=== PATIENT | female | born 1935 | race Caucasian/White ===

== ENCOUNTER 2021-12-25 23:44 | Emergency (ER) | payer MEDICARE, SELFPAY ==
[2021-12-26] VITALS (28 sets, daily range): BP systolic 157–243; BP diastolic 65–105; PULSE 78–107; RESP 16; TEMP 36.4; O2SAT 92–100
--- NOTE | 2021-12-26 00:08 | ED.EPISTAXIS ---
HPI - Epistaxis General Chief complaint: Epistaxis Stated complaint: nose bleed intermittent X 2 days Time Seen by Provider: 12/25/21 23:53 Source: patient Mode of arrival: ambulatory Limitations: no limitations History of Present Illness HPI Narrative: Patient is an 86-year-old female complaining of nosebleed, right right side that started today. Patient states that she has had nosebleeds in the past but would stop spontaneously. Patient denies being on any oral anticoagulant. Patient takes 1 baby aspirin a day. Patient denies any injury. Patient has no other complaints. Patient states that her blood pressure is usually high every time she sees her doctor or hospitals, makes her anxious. Related Data Home Medications Medication Instructions Recorded Confirmed aspirin 81 mg tablet,delayed 81 mg PO DAILY 02/19/20 07/21/21 release hydralazine 50 mg PO TID 12/26/21 Allergies Allergy/AdvReac Type Severity Reaction Status Date / Time clonidine AdvReac Unknown CONSTIPATIO Verified 12/26/21 00:06 N Review of Systems Review of Systems: Per HPI All systems reviewed & are unremarkable except as noted in HPI and below Constitutional: Constitutional: Denies body ache(s), Denies chills, Denies excessive sweating, Denies fatigue, Denies fever(s), Denies headache(s), Denies lethargy, Denies malaise, Denies weakness and Denies weight loss Eyes: Eyes: Denies blurry vision, Denies change in vision and Denies loss of vision ENT: Denies dizziness, Denies ear discharge, Denies headache(s), Denies lip swelling, Denies nasal congestion, Denies neck pain, Denies throat swelling and Denies tongue swelling Cardiovascular: Cardiovascular: Denies chest pain, Denies chest pain at rest, Denies chest pain with activity, Denies diaphoresis, Denies rapid heart rate, Denies edema, Denies irregular heart rhythm, Denies lightheadedness, Denies palpitations, Denies dyspnea and Denies dyspnea on exertion Respiratory: Respiratory: Denies chest congestion, Denies cough, Denies hemoptysis, Denies dyspnea and Denies dyspnea on exertion Gastrointestinal: Gastrointestinal: Denies abdominal pain, Denies melena, Denies hematochezia, Denies diarrhea, Denies nausea, Denies vomiting and Denies hematemesis Musculoskeletal: Musculoskeletal: Denies abnormal gait, Denies deformity, Denies joint swelling, Denies limited range of motion, Denies neck pain and Denies numbness Neurologic: Denies Abnormal speech present, Denies abnormal gait, Denies confusion, Denies dizziness, Denies headache(s), Denies focal weakness, Denies loss of vision, Denies numbness, Denies Other visual disturbances, Denies Sensory deficit (Neuro) and Denies weakness Psychiatric: Psychiatric: Denies confusion, Denies depression, Denies auditory hallucinations, Denies homicidal ideation and Denies suicidal ideation Endocrine: Endocrine: Denies cold intolerance, Denies excessive sweating, Denies fatigue, Denies heat intolerance and Denies palpitations Hematologic/Lymphatic: Hematologic/Lymphatic: Denies easy bleeding and Denies easy bruising Allergic/Immunologic: Allergic/Immunologic: Denies lip swelling, Denies throat swelling and Denies tongue swelling PMFSH Past Medical History Medical History (Updated 12/26/21 @ 00:19 by Shaheen Justin MD) Hemorrhoids Surgical History Surgical History H/O breast surgery H/O eye surgery implants Family History Family History Father Hypertension Family history of elevated blood lipids Family history of cardiovascular disease Sibling Family history of lymphoma Social History Social History Smoking status: Former smoker Alcohol intake: never Comments Past medical history: Hypertension Exam Const: General: cooperative, healthy appearing, comfortable, no acute di
[2021-12-26] MEDS: OXYMETAZOLINE HCL 0.05% NAS 15 ML BTL (*BKC) 2 SPRAY NASAL (00:09)
[2021-12-26] MEDS: LABETALOL HCL INJ 100 MG/20 ML VIAL 20 MG IV PUSH (00:54)
[2021-12-26 00:55] LABS: Basophils Absolute Auto 0.1 K/mm3 (0.0-0.1); Basophils Percent Auto 0.5 % (0.2-1.2); Eosinophils Absolute Auto 0.2 K/mm3 (0-0.3); Eosinophils Percent Auto 1.7 % (0-4.4); Hematocrit 45.9 % (37.0-47.0); Hemoglobin 14.7 g/dL (12.0-15.0); Immature Granulocyte Absolute 0.03 K/mm3 (0.00-0.031); Immature Granulocyte Percent A 0.3 % (0-0.5); Immature Platelet Fraction Pct 7.9 % (0.9-11.2); Lymphocytes Absolute Auto 3.33 K/mm3 (0.9-3.2); Lymphocytes Percent Auto 28.7 % (18.3-44.2); Mean Corpuscular Hemoglobin 30.5 pg (26-34); Mean Corpuscular Volume 95.2 fl (80-100); Mean Platelet Volume 11.9 fl (7.4-10.4); Monocytes Percent Auto 8.5 % (2.6-8.5); Neutrophils Percent Auto 60.3 % (45.5-73.1); Platelet Count Result 155 k/mm3 (150-375); Red Blood Count 4.82 M/mm3 (4.2-5.4); Red Cell Distribution Width 13.2 % (11.5-14.5); White Blood Count 11.6 K/mm3 (4.5-10.0)
[2021-12-26 01:25] LABS: Alanine Aminotransferase 18 U/L (4-35); Albumin Level 4.2 g/dL (3.5-5.1); Alkaline Phosphatase 121 U/L (38-126); Anion Gap 7 mmol/L (8-16); Aspartate Amino Transferase 34 U/L (14-36); Bilirubin,Total 0.6 mg/dL (0.2-1.3); Blood Urea Nitrogen 25 mg/dL (7-17); Calcium 10.3 mg/dL (8.4-10.2); Carbon Dioxide 26 mmol/L (22-30); Chloride 107 mmol/L (98-107); Estimated CRCL calculation 34 ml/min; Estimated Glomerular Filt Rate 60; Glucose 130 mg/dL (65-110); Potassium 3.2 mmol/L (3.4-5.0); Sodium 140 mmol/L (137-145)
[2021-12-26] MEDS: hydrALAZINE HCL 20 MG/ML VIAL 10 MG IV PUSH (01:45)
[2021-12-26] MEDS: POTASSIUM CHLORIDE 20 MEQ PACKET (FOR LIQUID) 40 MEQ PO (01:51)
--- NOTE | 2021-12-26 02:20 | PC.NURSE ---
RN spilled pts potassium powder and apple juice. Had to overide potassium packets.
== END 2021-12-26 02:40 | disposition home or self-care (01) ==
PROVIDERS: Emergency Provider Emergency Medicine; PCP Family Medicine
DX: R04.0 Epistaxis (principal); I10 Essential (primary) hypertension; Z79.82 Long term (current) use of aspirin; Z87.891 Personal history of nicotine dependence
CPT/HCPCS: 36415; 80053; 85025; 85055; 96374; 96375; 99284; A9270; J0360

== ENCOUNTER 2021-12-31 16:33 | Emergency (ER) | payer MEDICARE, SELFPAY ==
--- NOTE | ~2021-12-31 | XR_ITS ---
XR chest 2V DATE: 12/31/2021 17:06 INDICATION: Hypertension. Nosebleed. TECHNIQUE: AP and lateral views COMPARISON: 07/2017 PA and lateral chest FINDINGS: Cardiomegaly. Aortic calcification and mild unfolding. No hilar or mediastinal enlargement. No rib notching is noted. There is diffuse osteopenia. No pulmonary infiltrate or consolidation, pleural effusion or pulmonary vascular congestion or pneumo thorax. IMPRESSION: Thyromegaly, aortic atherosclerosis Osteopenia No active pulmonary disease Reviewed, dictated and finalized at location A.
--- NOTE | 2021-12-31 16:37 | ECG_ITS ---
Measurements Intervals [place] Rate: 104 P: 55 IN: 183 QRS: -56 QRSD: 139 T: 114 QT: 353 QTc: 465 Interpretive Statements SINUS TACHYCARDIA MARKED LEFT AXIS DEVIATION [QRS AXIS < -30] LEFT BUNDLE BRANCH BLOCK [120+ ms QRS DURATION, 80+ ms Q/S IN V1/V2, 85+ ms R IN I/aVL/V5/V6] ABNORMAL ECG NO PREVIOUS ECG AVAILABLE FOR COMPARISON Electronically Signed On 12-31-2021 17:32:36 CDT by Crispin Petersen M.D.
[2021-12-31 16:39] VITALS: BP 199/106; PULSE 106; RESP 18; TEMP 36.8; O2SAT 95
--- NOTE | 2021-12-31 16:39 | PC.NURSE ---
Stacking Machine Operator at bedside. IV access established.
--- NOTE | 2021-12-31 16:45 | PC.NURSE ---
Per Dr. Pyle pt is not a STEMI.
[2021-12-31 17:01] LABS: Basophils Absolute Auto 0.1 K/mm3 (0.0-0.1); Basophils Percent Auto 0.4 % (0.2-1.2); Eosinophils Absolute Auto 0.2 K/mm3 (0-0.3); Eosinophils Percent Auto 1.1 % (0-4.4); Hematocrit 46.9 % (37.0-47.0); Hemoglobin 15.4 g/dL (12.0-15.0); Immature Granulocyte Absolute 0.04 K/mm3 (0.00-0.031); Immature Granulocyte Percent A 0.3 % (0-0.5); Lymphocytes Absolute Auto 4.07 K/mm3 (0.9-3.2); Lymphocytes Percent Auto 29.2 % (18.3-44.2); Mean Corpuscular HGB Conc 32.8 g/dl (32-36); Mean Corpuscular Hemoglobin 30.3 pg (26-34); Mean Corpuscular Volume 92.1 fl (80-100); Mean Platelet Volume 11.1 fl (7.4-10.4); Monocytes Absolute Auto 1.2 K/mm3 (0.1-0.6); Monocytes Percent Auto 8.2 % (2.6-8.5); Neutrophils Absolute Auto 8.5 K/mm3 (1.3-6.7); Neutrophils Percent Auto 60.8 % (45.5-73.1); Platelet Count Result 226 k/mm3 (150-375); Red Blood Count 5.09 M/mm3 (4.2-5.4); White Blood Count 13.9 K/mm3 (4.5-10.0)
--- NOTE | 2021-12-31 17:07 | PM.CNCAR ---
Assessment and Plan Assessment and plan (1) Left bundle branch block: Code(s): I44.7 - Left bundle-branch block, unspecified Status: Acute Assessment and Plan: Clinical presentation not consistent with acute coronary syndrome and or STEMI. Patient denies chest pain or shortness of breath at any time. Left bundle-branch block on 12 lead EKG new compared to prior tracing from 2015. Chronicity remains unknown there is no clinical evidence to suggest this is an acute change in the setting of an acute myocardial infarction. Troponin pending. Patient denies any prior known history of CAD, myocardial infarction, CHF stroke. Presentation is not consistent with STEMI. STEMI team canceled as patient is completely asymptomatic in this regard. 2D echocardiogram to assess LV size/function, valve pathology pulmonary pressures. Recommendation to follow. Discussed EKG findings, clinical picture in detail with the patient verbalized understanding. DVT prophylaxis. Telemetry. Patient at risk for stroke and or ongoing bleeding if BP remains poorly controlled. (2) Hypertensive urgency: Code(s): I16.0 - Hypertensive urgency Status: Acute Assessment and Plan: Markedly elevated blood pressure resulting in headache and contributing to recurrent epistaxis. Resume home antihypertensive medication, BP control IV and p.o. regimen initially. Add amlodipine depending on BP response. Further management deferred to the ER at this time if BP unresponsive with > BP greater than 200's/100s she may require Nicardipine infusion. (3) Epistaxis: Code(s): R04.0 - Epistaxis Status: Acute Assessment and Plan: Management per primary service and ER. BP control, consider ENT evaluation as appropriate. No doubt exacerbated due to uncontrolled hypertension. (4) Mixed hyperlipidemia: Code(s): E78.2 - Mixed hyperlipidemia Status: Acute Assessment and Plan: Continue statin therapy. History of Present Illness History of Present Illness Consult date/time: Date of service: 12/31/21 17:07 Cardiology consultation at the request of Dr. Pierre for our opinion regarding abnormal EKG and possible STEMI Requesting physician: Brent Pierre MD Consult reason: Other (Abnormal EKG, possible STEMI) Reason For Visit: STEMI Narrative: Patient is a very pleasant 86-year-old female with a past medical history significant hypertension, hyperlipidemia, anxiety was seen her primary care physician's office earlier today for follow-up of an ER visit 12/25/2021 uncontrolled hypertension and epistaxis. BP recorded as 178/65 as she presented to the ER for nose bleed. This was stopped and she was discharged home. It is reported in her office visit she has stopped her beta-aide due to fatigue over 1 year ago. Earlier today she did not have complaints of recurrent bleeding but subsequently her nose began to bleed profusely once again and due to high blood pressure she reports 190s over 100s she presented to the ER. From that office visit sertraline was planned due to her anxiety and metoprolol 25 mg was started but she had not yet taken this medication. She was advised to go to the ER if she develops headache, blurry vision chest pain or shortness of breath. She presented to the ER due to bleeding and uncontrolled high blood pressure and headache but no chest pain shortness of breath at a time in the field EMS triggered STEMI due to her EKG which upon my evaluation is consistent with sinus rhythm with left bundle-branch block. Patient has no chest pain or shortness breath at any time. Actually states she is able to do all activities of daily living as normal with exception of her headache today and recurrent nose bleed. She has had no other limitations of late no near-syncope, syncope, palpitations or other bleeding. She denies fevers, chills or recent illnesses. She states she has been compliant with medications. She denies ortho
[2021-12-31 17:10] LABS: Prothrombin Time 12.5 Seconds (11.1-14.7)
[2021-12-31 17:10] LABS: Alanine Aminotransferase 18 U/L (4-35); Albumin Level 4.7 g/dL (3.5-5.1); Alkaline Phosphatase 123 U/L (38-126); Anion Gap 11 mmol/L (8-16); Aspartate Amino Transferase 38 U/L (14-36); Blood Urea Nitrogen 21 mg/dL (7-17); Calcium 10.8 mg/dL (8.4-10.2); Carbon Dioxide 23 mmol/L (22-30); Chloride 105 mmol/L (98-107); Estimated CRCL calculation 41 ml/min; Estimated Glomerular Filt Rate > 60; Glucose 112 mg/dL (65-110); Lipase 100 U/L (23-300); Potassium 3.6 mmol/L (3.4-5.0); Sodium 139 mmol/L (137-145)
[2021-12-31 17:11] LABS: Partial Thromboplastin Time 34.2 SECONDS (22.3-36.8)
[2021-12-31 17:22] LABS: Troponin I 0.012 ng/mL (0.000-0.034)
[2021-12-31 17:34] VITALS: BP 225/92; PULSE 93; RESP 18; O2SAT 98
[2021-12-31] MEDS: hydrALAZINE HCL 20 MG/ML VIAL 10 MG IV PUSH (17:34)
--- NOTE | 2021-12-31 18:23 | ED.GENADULT ---
HPI - General Adult General Chief complaint: Recheck/Abnormal Lab/Rx Stated complaint: STEMI Time Seen by Provider: 12/31/21 16:43 Source: patient and family Mode of arrival: EMS Limitations: no limitations History of Present Illness HPI narrative: 86-year-old with a history of hypertension, left bundle branch block, hyperlipidemia, recurrent nosebleeds from high blood pressure here with complaints of bleeding from the right nare associated with high blood pressure. Patient presently denies any headache, chest pain, shortness of breath. Family states that she had a similar problem few weeks ago was seen here in the ER. They also report that patient was seen by her primary doctor this morning and was given prescription for elevated blood pressure which they have not picked up from the pharmacy yet. Onset (ago): day(s) (1) Associated symptoms: denies other symptoms Treatments prior to arrival: none Related Data Home Medications Medication Instructions Recorded Confirmed aspirin 81 mg tablet,delayed 81 mg PO DAILY 02/19/20 12/31/21 release hydralazine 50 mg PO TID 12/26/21 12/31/21 Allergies Allergy/AdvReac Type Severity Reaction Status Date / Time clonidine AdvReac Unknown CONSTIPATIO Verified 12/31/21 14:34 N Review of Systems Review of Systems: All systems reviewed & are unremarkable except as noted in HPI and below Constitutional: Constitutional: Reports no additional constitutional complaints Eyes: Eyes: Reports no additional eye complaints ENT: Reports as per HPI Cardiovascular: Cardiovascular: Reports no additional cardiovascular complaints Respiratory: Respiratory: Reports no additional respiratory complaints Gastrointestinal: Gastrointestinal: Reports no additional gastrointestinal complaints Musculoskeletal: Musculoskeletal: Reports no additional musculoskeletal complaints Integumentary/Breasts: Skin/Breast: Reports system reviewed and no additional complaints, except as docu PMFSH Past Medical History Medical History Essential (primary) hypertension Hemorrhoids Left bundle branch block Mixed hyperlipidemia Surgical History Surgical History H/O breast surgery H/O eye surgery implants Family History Family History Father Hypertension Family history of elevated blood lipids Family history of cardiovascular disease Sibling Family history of lymphoma Social History Social History Alcohol intake: never Exam Narrative: GENERAL: Well-appearing, well-nourished, and in no acute distress. HEAD: Normocephalic, atraumatic. EYES: PERRLA and EOMI. ENT: Nares clear, no rhinorrhea right nare has old dried of blood .. Mucous membranes moist. NECK: Supple. CHEST: Clear to auscultation. No respiratory distress. HEART: Regular rate and rhythm. No murmur heard. Normal peripheral pulses. ABDOMEN: Soft, nontender, nondistended, normal active bowel sounds. EXTREMITIES: Normal range of motion. No edema. SKIN: Warm, dry, no rash. NEURO: No focal deficits. Alert and oriented x3. PSYCH: Normal mood and affect. Course Vital Signs Vital signs: Vital Signs Temperature 36.8 C 12/31/21 16:39 Pulse Rate 106 H 12/31/21 16:39 Respiratory Rate 18 12/31/21 16:39 Blood Pressure 199/106 H 12/31/21 16:39 Pulse Oximetry 95 12/31/21 16:39 Temperature 36.8 C 12/31/21 16:39 Pulse Rate 100 12/31/21 18:24 Respiratory Rate 18 12/31/21 18:24 Blood Pressure 180/62 H 12/31/21 18:24 Pulse Oximetry 98 12/31/21 18:24 Medical Decision Making Vital Signs Vital Signs: Vital Signs Temperature 36.8 C 12/31/21 16:39 Pulse Rate 106 H 12/31/21 16:39 Respiratory Rate 18 12/31/21 16:39 Blood Pressure 199/106 H 12/31/21 16:39 Pulse Oximetry 95 03
[2021-12-31 18:24] VITALS: BP 180/62; PULSE 100; RESP 18; O2SAT 98
[2021-12-31] MEDS: hydrALAZINE HCL 20 MG/ML VIAL 5 MG IV PUSH (18:37)
[2021-12-31 19:16] VITALS: BP 167/75; PULSE 96; RESP 18; O2SAT 97
[2021-12-31] MEDS: PHENYLEPHRINE 1% NA SPR (*BKC) 15 ML BTL 1 SPRAY NASAL (19:21)
[2021-12-31 19:40] VITALS: BP 162/78; PULSE 78; RESP 18; O2SAT 98
== END 2021-12-31 19:40 | disposition home or self-care (01) ==
PROVIDERS: Emergency Medicine; Emergency Provider Family Medicine; PCP Family Medicine
DX: R04.0 Epistaxis (principal); I16.0 Hypertensive urgency; E78.2 Mixed hyperlipidemia; I44.7 Left bundle-branch block, unspecified; R00.0 Tachycardia, unspecified; I70.0 Atherosclerosis of aorta; E04.9 Nontoxic goiter, unspecified; M85.88 Other specified disorders of bone density and structure, other site
CPT/HCPCS: 36415; 71046; 80053; 83690; 84484; 85025; 85610; 85730; 93005; 96374; 96375; 99284; A9270; J0360